=== PATIENT | male | born 1945 | race Caucasian/White ===

== ENCOUNTER 2022-06-17 20:40 | Inpatient (IN) | payer MEDICARE ==
[~2022-06-17 20:40] MED LIST: Iopamidol-370 76% 500 ML 1 ML ONE
[2022-06-17] MEDS ORDERED: Midazolam HCl 2 mg/2 ml Vial ONE (20:54)
[2022-06-17 21:19] LABS: #Eosinphils 0.1 thou/uL (0.0-0.7); #Lymphocytes 1.5 thou/uL (1.20-3.40); #Monocytes 0.5 thou/uL (0.11-0.59); #Neutrophils 5.3 thou/uL (1.40-6.50); %Basophils 0.3 % (0.0-1.0); %Eosinophils 1.5 % (0.0-10.0); %Lymphocytes 19.8 % (21.0-51.0); %Monocytes 6.3 % (0.0-10.0); %Neutrophils 72.1 % (42.0-75.0); Hemoglobin 14.3 g/dL (14.0-18.0); Mean Corpuscular HGB CONC 32.7 g/dL (32.0-36.0); Mean Corpuscular Hemoglobin 30.6 pg (27.0-31.0); Mean Corpuscular Volume 93.5 fL (78.0-98.0); Mean Platelet Volume 9.7 fL (7.4-10.4); Platelet Count 171 thou/uL (130-400); RBC Distribution Width 12.1 % (11.5-14.5); Red Blood Cell (RBC) Count 4.66 mill/uL (4.70-6.10); White Blood Cell (WBC) Count 7.4 thou/uL (4.8-10.8)
[2022-06-17 21:33] LABS: INR-International Normal Ratio 1.1; Prothrombin Time 13.8 sec (12.0-14.7)
[2022-06-17 21:36] LABS: CK (CPK) 44 U/L (30-200); CRP (Inflammatory) Less than 0.50 mg/dL (= or < 0.5)
[2022-06-17] MEDS ORDERED: Tenecteplase 50 MG - STEMI KIT ONE (21:36)
[2022-06-17 21:37] LABS: ALT (SGPT) 8 U/L (8-55); AST (SGOT) 9 U/L (5-34); Albumin 3.4 g/dL (3.4-4.8); Alkaline Phosphatase 68 U/L (40-110); Anion Gap 15 mmol/L (10-20); BUN (Urea Nitrogen) 18 mg/dL (8.4-25.7); Bilirubin, Total 0.8 mg/dL (0.2-1.2); Calc. Creatinine Clearance 0 mL/min (70-130); Calcium 8.8 mg/dL (7.8-10.44); Carbon Dioxide 22 mmol/L (23-31); Chloride 106 mmol/L (98-107); Estimated GFR 44; Glucose 153 mg/dL (83-110); Potassium 3.5 mmol/L (3.5-5.1); Protein, Total 5.4 g/dL (5.8-8.1); Sodium 139 mmol/L (136-145)
[2022-06-17 21:42] LABS: Acetaminophen Less than 10.0 mcg/mL (10.0-30.0); Alcohol Less than 10 mg/dL (Less than 10); Salicylate Less than 8.0 mg/dL (15.0-30.0)
[2022-06-17 21:58] LABS: CKMB 0.7 ng/mL (0-6.6)
[2022-06-17 22:31] LABS: Bacteria/HPF None Seen HPF (None Seen); Bilirubin Negative (Negative); Blood, Urine Negative (Negative); Clarity Clear (Clear); Glucose, Urine (Dipstick) 150 mg/dL (Negative); Ketone, Urine Negative (Negative); Leukocyte Negative Leu/uL (Negative); Nitrite Negative (Negative); Protein, Urine (Dipstick) 30 mg/dL (Neg-Trace); RBC/HPF 0-3 HPF (0-3); Specific Gravity, Urine 1.035 (1.002-1.036); Squamous Epithelial None Seen HPF (0-3); Urobilinogen Normal mg/dL (Less than 2); WBC/HPF 0-3 HPF (0-3)
[2022-06-17] MEDS ORDERED: hydrALAZINE 20 MG/ML VIAL ONE (22:34)
[2022-06-17 22:38] LABS: Amphetamine Not Detected (NotDetected); Barbiturates Screen Not Detected (NotDetected); Benzodiazepine Screen Detected (NotDetected); Cocaine Metabolite Screen Not Detected (NotDetected); Methadone Not Detected (NotDetected); Methamphetamine Not Detected (NotDetected); Opiate Screen Not Detected (NotDetected); Oxycodone Screen Not Detected (NotDetected); Phencyclidine (PCP) Not Detected (NotDetected); THC/Cannabinoid Screen Not Detected (NotDetected); Tricyclic Screen Not Detected (NotDetected)
[2022-06-17] MEDS ORDERED: Acetaminophen 325 MG TAB PO PRN (22:55)
[2022-06-17] MEDS ORDERED: Dextrose 50% Abboject 50 ML SYRINGE SLOW IVP PRN (22:55)
[2022-06-17] MEDS ORDERED: Dextrose 5% in Water 1,000 ML IV PRN (22:55)
[2022-06-17] MEDS ORDERED: Ondansetron ODT 4 MG TAB PO PRN (22:55)
[2022-06-17] MEDS ORDERED: HumaLOG 300 UNITS/3 ML VIAL SC PRN (22:55)
[2022-06-17] MEDS ORDERED: Ondansetron PF 4 MG/2 ML Vial IVP PRN (22:55)
[2022-06-17 22:59] LABS: SARS-CoV-2 NAA Rapid Test Not Detected (NotDetected)
[2022-06-17] MEDS ORDERED: Communication Order-Pharmacy FS SCH (23:01)
[2022-06-17] MEDS: Labetalol HCl 100 MG/20 ML VIAL SLOW IVP PRN (23:37)
[2022-06-17] MEDS: Acetaminophen 650 MG Suppository PR PRN (23:37)
[2022-06-18] MEDS: niCARdipine 25 MG in Sodium Chloride 0.9% 250 ML 250 ML IVPB PRN ×9 (00:14→22:13)
[2022-06-18] MEDS: Labetalol HCl 100 MG/20 ML VIAL SLOW IVP PRN ×2 (01:00→02:30)
[2022-06-18] MEDS: HumaLOG 300 UNITS/3 ML VIAL SC PRN (01:02)
[2022-06-18] MEDS ORDERED: Acetaminophen 650 MG Suppository PR SCH (01:15)
[2022-06-18] MEDS ORDERED: Piperacillin/Tazobactam 3.375 GM in Sodium Chloride 0.9% 100 ML IVPB SCH ×2 (01:15→01:30)
[2022-06-18] MEDS ORDERED: VANCOMYCIN 1.25 GM/250 ML BAG 1.25 GM in Premix Bag 1 BAG IVPB SCH (01:15)
[2022-06-18] MEDS ORDERED: Vancomycin 1.5 GRAM/300 ML BAG 1.5 GM in Premix Bag 1 BAG IVPB SCH (02:00)
[2022-06-18] MEDS ORDERED: Vancomycin 1 GM in Premix Bag 1 BAG IVPB SCH (02:00)
[2022-06-18] MEDS ORDERED: Pantoprazole 40 MG VIAL IVP SCH (02:45)
[2022-06-18] MEDS ORDERED: Ketorolac Tromethamine 30 MG/ML VIAL IVP SCH (02:45)
[2022-06-18] MEDS: Acetaminophen 650 MG Suppository PR PRN ×3 (02:56→22:09)
[2022-06-18] MEDS: Piperacillin/Tazobactam 3.375 GM in Sodium Chloride 0.9% 100 ML IVPB SCH ×3 (05:58→22:08)
[2022-06-18] MEDS: Pantoprazole 40 MG VIAL IVP SCH (08:41)
[2022-06-18] MEDS ORDERED: Aspirin 300 MG Suppository PR SCH (09:00)
[2022-06-18] MEDS: Mupirocin 2% Ointment 22 GM Tube TOP SCH ×2 (14:02→20:37)
[2022-06-19] MEDS: niCARdipine 25 MG in Sodium Chloride 0.9% 250 ML 250 ML IVPB PRN ×2 (00:58→03:01)
[2022-06-19] MEDS: Vancomycin 1 GM in Premix Bag 1 BAG IVPB SCH (01:39)
[2022-06-19] MEDS ORDERED: niCARdipine 25 MG/10 ML VIAL ONE (03:00)
[2022-06-19 05:41] LABS: Anion Gap 16 mmol/L (10-20); BUN (Urea Nitrogen) 29 mg/dL (8.4-25.7); Calc. Creatinine Clearance 33 mL/min (70-130); Calcium 8.8 mg/dL (7.8-10.44); Carbon Dioxide 19 mmol/L (23-31); Chloride 109 mmol/L (98-107); Estimated GFR 34; Glucose 198 mg/dL (83-110); Potassium 3.8 mmol/L (3.5-5.1); Sodium 140 mmol/L (136-145)
[2022-06-19 06:58] LABS: #Lymphocytes 1.4 thou/uL (1.20-3.40); #Monocytes 1.1 thou/uL (0.11-0.59); #Neutrophils 13.4 thou/uL (1.40-6.50); %Basophils 0.2 % (0.0-1.0); %Lymphocytes 8.5 % (21.0-51.0); %Monocytes 6.9 % (0.0-10.0); %Neutrophils 84.3 % (42.0-75.0); Hemoglobin 13.8 g/dL (14.0-18.0); Mean Corpuscular HGB CONC 33.9 g/dL (32.0-36.0); Mean Corpuscular Hemoglobin 31.1 pg (27.0-31.0); Mean Corpuscular Volume 91.7 fL (78.0-98.0); Mean Platelet Volume 10.2 fL (7.4-10.4); Platelet Count 197 thou/uL (130-400); RBC Distribution Width 12.4 % (11.5-14.5); Red Blood Cell (RBC) Count 4.45 mill/uL (4.70-6.10); White Blood Cell (WBC) Count 15.9 thou/uL (4.8-10.8)
[2022-06-19] MEDS: Piperacillin/Tazobactam 3.375 GM in Sodium Chloride 0.9% 100 ML IVPB SCH ×3 (07:24→21:43)
[2022-06-19 08:18] LABS: Magnesium 1.7 mg/dL (1.6-2.6)
[2022-06-19] MEDS: Pantoprazole 40 MG VIAL IVP SCH (08:52)
[2022-06-19] MEDS: Mupirocin 2% Ointment 22 GM Tube TOP SCH ×3 (08:52→21:45)
[2022-06-19] MEDS ORDERED: Lorazepam (BATCHED) 2 MG/ML SYR SLOW IVP PRN (13:10)
[2022-06-19] MEDS: Sodium Chloride 0.9% 1,000 ML IV SCH (14:05)
[2022-06-20 01:19] LABS: Vancomycin, Trough 11.4 ug/mL
[2022-06-20] MEDS ORDERED: OLANZapine 10 MG VIAL IM SCH ×2 (02:30→21:15)
[2022-06-20] MEDS ORDERED: Sterile Water 10 ML VIAL FS PRN ×2 (02:30→21:15)
[2022-06-20] MEDS: Vancomycin 1 GM in Premix Bag 1 BAG IVPB SCH (02:44)
[2022-06-20 04:56] LABS: #Eosinphils 0.1 thou/uL (0.0-0.7); #Neutrophils 10.9 thou/uL (1.40-6.50); %Basophils 0.3 % (0.0-1.0); %Eosinophils 0.6 % (0.0-10.0); %Lymphocytes 14.1 % (21.0-51.0); %Monocytes 7.1 % (0.0-10.0); Hemoglobin 14.8 g/dL (14.0-18.0); Hemoglobin A1c 6.6 % (4.0-6.0); Mean Corpuscular HGB CONC 32.1 g/dL (32.0-36.0); Mean Corpuscular Hemoglobin 30.3 pg (27.0-31.0); Mean Corpuscular Volume 94.4 fL (78.0-98.0); Mean Platelet Volume 9.3 fL (7.4-10.4); Platelet Count 196 thou/uL (130-400); RBC Distribution Width 12.5 % (11.5-14.5); Red Blood Cell (RBC) Count 4.87 mill/uL (4.70-6.10); White Blood Cell (WBC) Count 13.9 thou/uL (4.8-10.8)
[2022-06-20 05:16] LABS: Anion Gap 14 mmol/L (10-20); BUN (Urea Nitrogen) 31 mg/dL (8.4-25.7); Calc. Creatinine Clearance 39 mL/min (70-130); Calcium 8.8 mg/dL (7.8-10.44); Carbon Dioxide 20 mmol/L (23-31); Chloride 114 mmol/L (98-107); Estimated GFR 42; Glucose 105 mg/dL (83-110); Potassium 3.4 mmol/L (3.5-5.1); Sodium 145 mmol/L (136-145)
[2022-06-20] MEDS: Piperacillin/Tazobactam 3.375 GM in Sodium Chloride 0.9% 100 ML IVPB SCH ×3 (05:53→22:13)
[2022-06-20] MEDS ORDERED: Potassium Chloride 20 MEQ in Premix Bag 1 BAG IVPB SCH (07:45)
[2022-06-20] MEDS: Sodium Chloride 0.9% 1,000 ML IV SCH (10:10)
[2022-06-20] MEDS: Mupirocin 2% Ointment 22 GM Tube TOP SCH ×3 (10:13→22:13)
[2022-06-20] MEDS: Pantoprazole 40 MG VIAL IVP SCH (10:13)
[2022-06-20] MEDS ORDERED: Lorazepam 1 MG TAB PO SCH (15:30)
[2022-06-21 01:22] LABS: Vancomycin, Trough 10.9 ug/mL
[2022-06-21] MEDS: hydrALAZINE 20 MG/ML VIAL SLOW IVP PRN ×2 (01:48→05:37)
[2022-06-21] MEDS ORDERED: Vancomycin 1.5 GRAM/300 ML BAG 1.5 GM in Premix Bag 1 BAG IVPB SCH (02:00)
[2022-06-21] MEDS ORDERED: Lorazepam 0.5 MG TAB PO SCH (03:15)
[2022-06-21 05:04] LABS: #Eosinphils 0.2 thou/uL (0.0-0.7); #Lymphocytes 1.6 thou/uL (1.20-3.40); #Monocytes 0.9 thou/uL (0.11-0.59); #Neutrophils 8.5 thou/uL (1.40-6.50); %Basophils 0.3 % (0.0-1.0); %Eosinophils 1.9 % (0.0-10.0); %Lymphocytes 13.8 % (21.0-51.0); %Monocytes 7.8 % (0.0-10.0); %Neutrophils 76.2 % (42.0-75.0); Mean Corpuscular HGB CONC 31.7 g/dL (32.0-36.0); Mean Corpuscular Hemoglobin 29.5 pg (27.0-31.0); Mean Corpuscular Volume 93.3 fL (78.0-98.0); Mean Platelet Volume 9.1 fL (7.4-10.4); Platelet Count 194 thou/uL (130-400); RBC Distribution Width 12.3 % (11.5-14.5); Red Blood Cell (RBC) Count 5.09 mill/uL (4.70-6.10); White Blood Cell (WBC) Count 11.2 thou/uL (4.8-10.8)
[2022-06-21 05:25] LABS: Anion Gap 16 mmol/L (10-20); BUN (Urea Nitrogen) 22 mg/dL (8.4-25.7); Calc. Creatinine Clearance 46 mL/min (70-130); Calcium 9.2 mg/dL (7.8-10.44); Carbon Dioxide 21 mmol/L (23-31); Chloride 110 mmol/L (98-107); Estimated GFR 51; Glucose 65 mg/dL (83-110); Potassium 3.2 mmol/L (3.5-5.1); Sodium 144 mmol/L (136-145)
[2022-06-21] MEDS: Piperacillin/Tazobactam 3.375 GM in Sodium Chloride 0.9% 100 ML IVPB SCH ×2 (05:37→07:10)
[2022-06-21] MEDS ORDERED: Potassium Chloride 40 MEQ in Premix Bag 1 BAG IVPB SCH (07:45)
[2022-06-21] MEDS ORDERED: Potassium Chloride 20 MEQ in Premix Bag 1 BAG IVPB SCH (08:00)
[2022-06-21] MEDS: Amlodipine 10 MG TAB PO SCH (08:37)
[2022-06-21] MEDS: Pantoprazole 40 MG VIAL IVP SCH (08:37)
[2022-06-21] MEDS: Lisinopril 20 MG TAB PO SCH (08:37)
[2022-06-21] MEDS: Mupirocin 2% Ointment 22 GM Tube TOP SCH ×3 (08:38→20:45)
[2022-06-21] MEDS: Sodium Chloride 0.9% 1,000 ML IV SCH (08:40)
[2022-06-21] MEDS ORDERED: Baclofen 10 MG TAB PO SCH (09:00)
[2022-06-21] MEDS ORDERED: Potassium Chloride 20 MEQ TAB PO SCH (09:15)
[2022-06-21] MEDS: Temazepam 15 MG CAP PO SCH (20:45)
[2022-06-21] MEDS: Atorvastatin Calcium 40 MG TAB PO SCH (20:45)
[2022-06-22 05:24] LABS: Anion Gap 13 mmol/L (10-20); BUN (Urea Nitrogen) 23 mg/dL (8.4-25.7); Calc. Creatinine Clearance 51 mL/min (70-130); Calcium 8.9 mg/dL (7.8-10.44); Carbon Dioxide 23 mmol/L (23-31); Chloride 111 mmol/L (98-107); Estimated GFR 58; Glucose 111 mg/dL (83-110); Potassium 3.5 mmol/L (3.5-5.1); Sodium 143 mmol/L (136-145)
[2022-06-22] MEDS: Mupirocin 2% Ointment 22 GM Tube TOP SCH ×3 (08:33→22:06)
[2022-06-22] MEDS: Amlodipine 10 MG TAB PO SCH (08:33)
[2022-06-22] MEDS: Lisinopril 20 MG TAB PO SCH (08:33)
[2022-06-22] MEDS: Aspirin 81 mg Enteric Coated Tablet PO SCH (08:33)
[2022-06-22] MEDS: HumaLOG 300 UNITS/3 ML VIAL SC PRN ×2 (11:44→16:38)
[2022-06-22] MEDS: Atorvastatin Calcium 40 MG TAB PO SCH (22:05)
[2022-06-22] MEDS: Temazepam 15 MG CAP PO SCH (22:06)
[2022-06-23 05:38] LABS: #Eosinphils 0.4 thou/uL (0.0-0.7); #Lymphocytes 1.9 thou/uL (1.20-3.40); #Monocytes 0.9 thou/uL (0.11-0.59); #Neutrophils 5.3 thou/uL (1.40-6.50); %Basophils 0.5 % (0.0-1.0); %Eosinophils 4.7 % (0.0-10.0); %Lymphocytes 22.2 % (21.0-51.0); %Monocytes 10.9 % (0.0-10.0); %Neutrophils 61.7 % (42.0-75.0); Hemoglobin 14.5 g/dL (14.0-18.0); Mean Corpuscular HGB CONC 33.6 g/dL (32.0-36.0); Mean Corpuscular Hemoglobin 31.4 pg (27.0-31.0); Mean Corpuscular Volume 93.3 fL (78.0-98.0); Mean Platelet Volume 9.6 fL (7.4-10.4); Platelet Count 176 thou/uL (130-400); RBC Distribution Width 12.2 % (11.5-14.5); Red Blood Cell (RBC) Count 4.62 mill/uL (4.70-6.10); White Blood Cell (WBC) Count 8.6 thou/uL (4.8-10.8)
[2022-06-23 05:53] LABS: Anion Gap 11 mmol/L (10-20); BUN (Urea Nitrogen) 32 mg/dL (8.4-25.7); Calc. Creatinine Clearance 41 mL/min (70-130); Calcium 8.8 mg/dL (7.8-10.44); Carbon Dioxide 25 mmol/L (23-31); Chloride 111 mmol/L (98-107); Estimated GFR 47; Glucose 129 mg/dL (83-110); Sodium 144 mmol/L (136-145)
[2022-06-23 06:01] LABS: Potassium 2.9 mmol/L (3.5-5.1)
[2022-06-23] MEDS ORDERED: Potassium Chloride 20 MEQ TAB PO SCH (06:15)
[2022-06-23] MEDS ORDERED: Potassium Bicarbonate/Cit Ac 20 MEQ TAB PO SCH ×3 (06:15→22:30)
[2022-06-23 06:26] LABS: Magnesium 2.1 mg/dL (1.6-2.6)
[2022-06-23] MEDS ORDERED: Electrolyte Replacement Protocol 1 EACH FS SCH (06:45)
[2022-06-23] MEDS: hydrALAZINE 20 MG/ML VIAL SLOW IVP PRN (07:02)
[2022-06-23] MEDS: Amlodipine 10 MG TAB PO SCH (09:09)
[2022-06-23] MEDS: metFORMIN 500 MG TAB PO SCH (09:10)
[2022-06-23] MEDS: Aspirin 81 mg Enteric Coated Tablet PO SCH (09:11)
[2022-06-23] MEDS: Lisinopril 20 MG TAB PO SCH (09:12)
[2022-06-23] MEDS: Mupirocin 2% Ointment 22 GM Tube TOP SCH ×3 (09:14→20:45)
[2022-06-23] MEDS ORDERED: Polyethylene Glycol 3350 17 GM Packet PO PRN (11:34)
[2022-06-23] MEDS ORDERED: Metoprolol Tartrate 25 MG TAB PO SCH (12:15)
[2022-06-23] MEDS ORDERED: Senokot S 8.6-50 MG TAB PO SCH (12:15)
[2022-06-23 18:49] LABS: Potassium 3.5 mmol/L (3.5-5.1)
[2022-06-23] MEDS: Temazepam 15 MG CAP PO SCH (20:36)
[2022-06-23] MEDS: Atorvastatin Calcium 40 MG TAB PO SCH (20:36)
[2022-06-23] MEDS: Metoprolol Tartrate 25 MG TAB PO SCH (20:36)
[2022-06-23] MEDS: Senokot S 8.6-50 MG TAB PO SCH (21:11)
[2022-06-24 08:20] LABS: #Basophils 0.1 thou/uL (0.0-0.2); #Eosinphils 0.3 thou/uL (0.0-0.7); #Lymphocytes 1.5 thou/uL (1.20-3.40); #Monocytes 0.9 thou/uL (0.11-0.59); #Neutrophils 8.2 thou/uL (1.40-6.50); %Basophils 0.6 % (0.0-1.0); %Eosinophils 3.1 % (0.0-10.0); %Lymphocytes 13.5 % (21.0-51.0); %Monocytes 7.7 % (0.0-10.0); Hemoglobin 13.5 g/dL (14.0-18.0); Mean Corpuscular HGB CONC 32.1 g/dL (32.0-36.0); Mean Corpuscular Volume 93.5 fL (78.0-98.0); Mean Platelet Volume 10.2 fL (7.4-10.4); Platelet Count 194 thou/uL (130-400); RBC Distribution Width 12.1 % (11.5-14.5); Red Blood Cell (RBC) Count 4.51 mill/uL (4.70-6.10); White Blood Cell (WBC) Count 10.9 thou/uL (4.8-10.8)
[2022-06-24 08:36] LABS: Anion Gap 12 mmol/L (10-20); BUN (Urea Nitrogen) 33 mg/dL (8.4-25.7); Calc. Creatinine Clearance 39 mL/min (70-130); Carbon Dioxide 28 mmol/L (23-31); Chloride 107 mmol/L (98-107); Estimated GFR 42; Glucose 126 mg/dL (83-110); Potassium 3.7 mmol/L (3.5-5.1); Sodium 143 mmol/L (136-145)
[2022-06-24] MEDS: Lisinopril 20 MG TAB PO SCH (09:15)
[2022-06-24] MEDS: Aspirin 81 mg Enteric Coated Tablet PO SCH (09:16)
[2022-06-24] MEDS: Metoprolol Tartrate 25 MG TAB PO SCH ×2 (09:16→20:34)
[2022-06-24] MEDS: metFORMIN 500 MG TAB PO SCH (09:16)
[2022-06-24] MEDS: Amlodipine 10 MG TAB PO SCH (09:17)
[2022-06-24] MEDS: Senokot S 8.6-50 MG TAB PO SCH ×2 (09:18→20:48)
[2022-06-24] MEDS: Mupirocin 2% Ointment 22 GM Tube TOP SCH ×3 (09:18→20:47)
[2022-06-24] MEDS: Temazepam 15 MG CAP PO SCH (20:34)
[2022-06-24] MEDS: Atorvastatin Calcium 40 MG TAB PO SCH (20:34)
[2022-06-25 05:32] LABS: Anion Gap 12 mmol/L (10-20); BUN (Urea Nitrogen) 29 mg/dL (8.4-25.7); Calc. Creatinine Clearance 45 mL/min (70-130); Calcium 8.5 mg/dL (7.8-10.44); Carbon Dioxide 24 mmol/L (23-31); Chloride 108 mmol/L (98-107); Estimated GFR 49; Glucose 118 mg/dL (83-110); Potassium 3.2 mmol/L (3.5-5.1); Sodium 141 mmol/L (136-145)
[2022-06-25] MEDS ORDERED: Potassium Chloride 20 MEQ TAB PO SCH (08:00)
[2022-06-25] MEDS: Lisinopril 20 MG TAB PO SCH (10:05)
[2022-06-25] MEDS: Metoprolol Tartrate 25 MG TAB PO SCH ×2 (10:06→22:27)
[2022-06-25] MEDS: Amlodipine 10 MG TAB PO SCH (10:06)
[2022-06-25] MEDS: Aspirin 81 mg Enteric Coated Tablet PO SCH (10:06)
[2022-06-25] MEDS: Mupirocin 2% Ointment 22 GM Tube TOP SCH ×3 (10:07→22:13)
[2022-06-25] MEDS: Senokot S 8.6-50 MG TAB PO SCH (10:07)
[2022-06-25] MEDS: metFORMIN 500 MG TAB PO SCH (10:08)
[2022-06-25] MEDS ORDERED: Senokot S 8.6-50 MG TAB PO PRN (15:45)
[2022-06-25] MEDS: Temazepam 15 MG CAP PO SCH (22:13)
[2022-06-25] MEDS: Atorvastatin Calcium 40 MG TAB PO SCH (22:13)
[2022-06-26 05:49] LABS: Anion Gap 12 mmol/L (10-20); BUN (Urea Nitrogen) 22 mg/dL (8.4-25.7); Calc. Creatinine Clearance 48 mL/min (70-130); Calcium 8.8 mg/dL (7.8-10.44); Carbon Dioxide 24 mmol/L (23-31); Chloride 110 mmol/L (98-107); Estimated GFR 53; Glucose 108 mg/dL (83-110); Potassium 3.6 mmol/L (3.5-5.1); Sodium 142 mmol/L (136-145)
[2022-06-26] MEDS: metFORMIN 500 MG TAB PO SCH (09:52)
[2022-06-26] MEDS: Lisinopril 20 MG TAB PO SCH (09:52)
[2022-06-26] MEDS: Saccharomyces boulardii 250 MG CAP PO SCH (09:54)
[2022-06-26] MEDS: Aspirin 81 mg Enteric Coated Tablet PO SCH (09:54)
[2022-06-26] MEDS: Amlodipine 10 MG TAB PO SCH (09:54)
[2022-06-26] MEDS: Mupirocin 2% Ointment 22 GM Tube TOP SCH ×3 (09:55→21:01)
[2022-06-26] MEDS: Metoprolol Tartrate 25 MG TAB PO SCH ×2 (09:55→21:11)
[2022-06-26] MEDS: Atorvastatin Calcium 40 MG TAB PO SCH (21:00)
[2022-06-26] MEDS: Temazepam 15 MG CAP PO SCH (21:00)
[2022-06-27] MEDS: Saccharomyces boulardii 250 MG CAP PO SCH (09:22)
[2022-06-27] MEDS: Lisinopril 20 MG TAB PO SCH (09:22)
[2022-06-27] MEDS: Metoprolol Tartrate 25 MG TAB PO SCH ×2 (09:22→21:53)
[2022-06-27] MEDS: Amlodipine 10 MG TAB PO SCH (09:23)
[2022-06-27] MEDS: metFORMIN 500 MG TAB PO SCH (09:23)
[2022-06-27] MEDS: Aspirin 81 mg Enteric Coated Tablet PO SCH (09:23)
[2022-06-27] MEDS: Mupirocin 2% Ointment 22 GM Tube TOP SCH ×3 (09:23→21:25)
[2022-06-27] MEDS: Atorvastatin Calcium 40 MG TAB PO SCH (21:26)
[2022-06-27] MEDS: Temazepam 15 MG CAP PO SCH (21:26)
[2022-06-28] MEDS: Saccharomyces boulardii 250 MG CAP PO SCH (08:35)
[2022-06-28] MEDS: metFORMIN 500 MG TAB PO SCH (08:36)
[2022-06-28] MEDS: Metoprolol Tartrate 25 MG TAB PO SCH ×2 (08:37→21:06)
[2022-06-28] MEDS: Aspirin 81 mg Enteric Coated Tablet PO SCH (08:37)
[2022-06-28] MEDS: Lisinopril 20 MG TAB PO SCH (08:37)
[2022-06-28] MEDS: Amlodipine 10 MG TAB PO SCH (08:37)
[2022-06-28] MEDS: Mupirocin 2% Ointment 22 GM Tube TOP SCH ×3 (08:42→21:07)
[2022-06-28 14:38] VITALS: BMI 22.3
[2022-06-28] MEDS: Temazepam 15 MG CAP PO SCH (21:07)
[2022-06-28] MEDS: Atorvastatin Calcium 40 MG TAB PO SCH (21:07)
[2022-06-29] MEDS: Metoprolol Tartrate 25 MG TAB PO SCH (09:06)
[2022-06-29] MEDS: Lisinopril 20 MG TAB PO SCH (09:14)
[2022-06-29] MEDS: metFORMIN 500 MG TAB PO SCH (09:14)
[2022-06-29] MEDS: Amlodipine 10 MG TAB PO SCH (09:15)
[2022-06-29] MEDS: Saccharomyces boulardii 250 MG CAP PO SCH (09:15)
[2022-06-29] MEDS: Aspirin 81 mg Enteric Coated Tablet PO SCH (09:15)
[2022-06-29 11:27] VITALS: BP 146/85; TEMP 98
== END 2022-06-29 15:54 | disposition home health service (06) | DRG 62 ==
LOC: ERS 20:40 → CCU 22:28 → NEURO 06-19 15:00
PROVIDERS: ADMIT Hospitalist; ATTEND Hospitalist
DX: I63.81 Other cerebral infarction due to occlusion or stenosis of small artery (principal); G81.94 Hemiplegia, unspecified affecting left nondominant side; R29.732 NIHSS score 32; R29.810 Facial weakness; E78.5 Hyperlipidemia, unspecified; I12.9 Hypertensive chronic kidney disease with stage 1 through stage 4 chronic kidney disease, or unspecified chronic kidney disease; E11.22 Type 2 diabetes mellitus with diabetic chronic kidney disease; N18.30 Chronic kidney disease, stage 3 unspecified; R50.9 Fever, unspecified; K59.00 Constipation, unspecified; E87.6 Hypokalemia; Z79.899 Other long term (current) drug therapy; Z79.84 Long term (current) use of oral hypoglycemic drugs; Z88.8 Allergy status to other drugs, medicaments and biological substances
CPT/HCPCS: 36415; 36416; 37195; 70450; 70496; 70498; 70551; 71045; 74230; 80048; 80053; 80061; 80202; 80306; 80307; 81003; 81015; 82550; 82553; 83036; 83605; 83735; 84443; 84484; 85025; 85610; 85730; 86140; 87040; 87086; 87324; 87449; 93005; 93306; 94760; 96374; 96375; C9113; J0360; J1610; J1815; J1885; J2250; J2358; J2543; J3101; J3370; J3480; J3490; J7050; Q9967; U0002; U0003; U0005

== ENCOUNTER 2022-08-07 12:19 | Inpatient (IN) | payer MEDICARE ==
[2022-08-07] MEDS ORDERED: Ondansetron PF 4 MG/2 ML Vial IVP PRN (13:29)
[2022-08-07] MEDS ORDERED: Ondansetron ODT 4 MG TAB PO PRN (13:29)
[2022-08-07] MEDS ORDERED: Calcium Carbonate 500 MG ChewTAB PO PRN (13:29)
[2022-08-07] MEDS ORDERED: Acetaminophen 325 MG TAB PO PRN (13:29)
[2022-08-07] MEDS ORDERED: hydrALAZINE 20 MG/ML VIAL SLOW IVP PRN (13:34)
[2022-08-07] MEDS ORDERED: Electrolyte Replacement Protocol 1 EACH FS PRN (13:45)
[2022-08-07] MEDS ORDERED: Amlodipine 10 MG TAB PO SCH (13:45)
[2022-08-07 18:39] VITALS: BMI 26.1
[2022-08-07] MEDS: Atorvastatin Calcium 40 MG TAB PO SCH (20:27)
[2022-08-07] MEDS: Heparin 5,000 UNITS/ML VIAL SC SCH (20:38)
[2022-08-07] MEDS ORDERED: traZODone HCl 50 MG TAB PO PRN (22:07)
[2022-08-08 05:26] LABS: #Eosinphils 0.3 thou/uL (0.0-0.7); #Lymphocytes 1.9 thou/uL (1.20-3.40); #Monocytes 0.6 thou/uL (0.11-0.59); #Neutrophils 4.1 thou/uL (1.40-6.50); %Basophils 0.3 % (0.0-1.0); %Eosinophils 3.8 % (0.0-10.0); %Lymphocytes 27.9 % (21.0-51.0); %Monocytes 8.4 % (0.0-10.0); %Neutrophils 59.7 % (42.0-75.0); Mean Corpuscular Hemoglobin 31.8 pg (27.0-31.0); Mean Corpuscular Volume 93.5 fL (78.0-98.0); Mean Platelet Volume 10.1 fL (7.4-10.4); Platelet Count 155 thou/uL (130-400); RBC Distribution Width 12.4 % (11.5-14.5); Red Blood Cell (RBC) Count 4.42 mill/uL (4.70-6.10); White Blood Cell (WBC) Count 6.9 thou/uL (4.8-10.8)
[2022-08-08 05:41] LABS: Anion Gap 14 mmol/L (10-20); BUN (Urea Nitrogen) 19 mg/dL (8.4-25.7); Calc. Creatinine Clearance 49 mL/min (70-130); Carbon Dioxide 22 mmol/L (23-31); Cardiac Risk 2.6 (Less than 4.5); Chloride 109 mmol/L (98-107); Cholesterol 140 mg/dl (< 200 Desired); Estimated GFR 50; Glucose 133 mg/dL (83-110); HDL Cholesterol 54 mg/dL (>60 Neg Risk); LDL Cholesterol, Calculated 69 mg/dL; Magnesium 1.9 mg/dL (1.6-2.6); Potassium 3.6 mmol/L (3.5-5.1); Sodium 141 mmol/L (136-145); Triglycerides 85 mg/dL (Less than 150)
[2022-08-08] MEDS ORDERED: Non-Formulary Item 1 EACH (Melatonin [Melatonin] 5 MG Tablet) PO PRN (07:27)
[2022-08-08] MEDS ORDERED: Melatonin 3 MG TAB PO PRN (07:32)
[2022-08-08] MEDS ORDERED: Magnesium 2 GM/50 ML(in water) 2 GM in Premix Bag 1 BAG IVPB SCH (08:00)
[2022-08-08] MEDS: Aspirin 81 mg Enteric Coated Tablet PO SCH (08:31)
[2022-08-08] MEDS: Clopidogrel Bisulfate 75 MG TAB PO SCH (08:31)
[2022-08-08] MEDS: Cyanocobalamin (Vitamin B-12) 1,000 MCG TAB PO SCH (08:32)
[2022-08-08] MEDS: Heparin 5,000 UNITS/ML VIAL SC SCH ×2 (08:32→19:55)
[2022-08-08] MEDS: Folic Acid 1 MG TAB PO SCH (08:32)
[2022-08-08] MEDS: Amlodipine 10 MG TAB PO SCH (08:32)
[2022-08-08] MEDS: Multivit, Therapeutic 1 TAB PO SCH (08:32)
[2022-08-08] MEDS: metFORMIN 500 MG TAB PO SCH (08:32)
[2022-08-08] MEDS ORDERED: Enoxaparin Sodium 40 MG/0.4 ML SYRINGE SC SCH (09:00)
[2022-08-08] MEDS: Atorvastatin Calcium 40 MG TAB PO SCH (19:55)
[2022-08-09] MEDS ORDERED: EPINEPHrine 1 MG/ML AMP ONE (06:30)
[2022-08-09] MEDS ORDERED: Lidocaine 1% (PF) 30 ML VIAL ONE (06:30)
[2022-08-09] MEDS: Amlodipine 10 MG TAB PO SCH (09:03)
[2022-08-09] MEDS: Multivit, Therapeutic 1 TAB PO SCH (09:04)
[2022-08-09] MEDS: Aspirin 81 mg Enteric Coated Tablet PO SCH (09:05)
[2022-08-09] MEDS: Clopidogrel Bisulfate 75 MG TAB PO SCH (09:05)
[2022-08-09] MEDS: metFORMIN 500 MG TAB PO SCH (09:05)
[2022-08-09] MEDS: Cyanocobalamin (Vitamin B-12) 1,000 MCG TAB PO SCH (09:06)
[2022-08-09] MEDS: Folic Acid 1 MG TAB PO SCH (09:06)
[2022-08-09 11:42] VITALS: BP 134/86; TEMP 98
== END 2022-08-09 13:40 | disposition home health service (06) | DRG 41 ==
LOC: ERS 12:19 → NEURO 13:08 → OBSVTOIN 17:28
PROVIDERS: ADMIT Internal Medicine; ATTEND Internal Medicine
PROC: 0JH632Z Insertion of Monitoring Device into Chest Subcutaneous Tissue and Fascia, Percutaneous Approach (ICD-10-PCS; principal; 2022-08-09)
DX: I63.81 Other cerebral infarction due to occlusion or stenosis of small artery (principal); G81.94 Hemiplegia, unspecified affecting left nondominant side; R29.702 NIHSS score 2; Z20.822 Contact with and (suspected) exposure to COVID-19; E78.2 Mixed hyperlipidemia; F41.9 Anxiety disorder, unspecified; N18.30 Chronic kidney disease, stage 3 unspecified; I12.9 Hypertensive chronic kidney disease with stage 1 through stage 4 chronic kidney disease, or unspecified chronic kidney disease; E11.22 Type 2 diabetes mellitus with diabetic chronic kidney disease; R00.1 Bradycardia, unspecified; G83.14 Monoplegia of lower limb affecting left nondominant side; I08.1 Rheumatic disorders of both mitral and tricuspid valves; E53.8 Deficiency of other specified B group vitamins; R13.10 Dysphagia, unspecified; F32.A Depression, unspecified; Z87.891 Personal history of nicotine dependence; R27.8 Other lack of coordination; Z79.84 Long term (current) use of oral hypoglycemic drugs; Z86.73 Personal history of transient ischemic attack (TIA), and cerebral infarction without residual deficits; Z88.8 Allergy status to other drugs, medicaments and biological substances; Z79.899 Other long term (current) drug therapy; Z79.02 Long term (current) use of antithrombotics/antiplatelets; Z98.890 Other specified postprocedural states; Z85.46 Personal history of malignant neoplasm of prostate; Z85.038 Personal history of other malignant neoplasm of large intestine; Z98.42 Cataract extraction status, left eye; Z98.41 Cataract extraction status, right eye
CPT/HCPCS: 33285; 36416; 70551; 80048; 80061; 83735; 85025; 93005; 93010; C1764; J0171; J1644; J2001; J3475; U0003; U0005

== ENCOUNTER 2023-01-29 08:18 | Outpatient (CLI) | payer MEDICARE | END 2023-01-29 08:19 | disposition home or self-care (01) | LOC: MRI 08:18 | PROVIDERS: ATTEND Nurse Practitioner Family | DX: M48.062 Spinal stenosis, lumbar region with neurogenic claudication (principal) | CPT/HCPCS: 72148 ==

== ENCOUNTER 2023-07-09 13:34 | Inpatient (IN) | payer MEDICARE ==
[~2023-07-09 13:34] MED LIST changes: -Iopamidol-370 76% 500 ML 1 ML ONE; +Iopamidol-370 76% 500 ML MDV (1 ML CHARGE) ONE
[2023-07-09] MEDS ORDERED: Ondansetron PF 4 MG/2 ML Vial ONE (14:07)
[2023-07-09] MEDS ORDERED: Labetalol HCl 100 MG/20 ML VIAL ONE (14:07)
[2023-07-09 14:10] LABS: #Eosinphils 0.1 thou/uL (0.0-0.7); #Monocytes 0.6 thou/uL (0.11-0.59); #Neutrophils 7.4 thou/uL (1.40-6.50); %Basophils 0.4 % (0.0-1.0); %Eosinophils 0.9 % (0.0-10.0); %Lymphocytes 17.3 % (21.0-51.0); %Monocytes 6.2 % (0.0-10.0); %Neutrophils 74.8 % (42.0-75.0); Hemoglobin 12.1 g/dL (14.0-18.0); Mean Corpuscular HGB CONC 33.6 g/dL (32.0-36.0); Mean Corpuscular Hemoglobin 31.1 pg (27.0-31.0); Mean Corpuscular Volume 92.5 fl (78.0-98.0); Mean Platelet Volume 11.4 fL (7.4-10.4); Platelet Count 223 10x3/uL (130-400); RBC Distribution Width 12.5 % (11.5-14.5); Red Blood Cell (RBC) Count 3.89 mill/uL (4.70-6.10); White Blood Cell (WBC) Count 9.9 10x3/uL (4.8-10.8)
[2023-07-09 14:29] LABS: INR-International Normal Ratio 1.1; Prothrombin Time 14.7 sec (12.0-14.7)
[2023-07-09 14:30] LABS: PTT 27.4 sec (22.9-36.1)
[2023-07-09 14:32] LABS: ALT (SGPT) 10 U/L (8-55); AST (SGOT) 11 U/L (5-34); Albumin 3.6 g/dL (3.4-4.8); Alkaline Phosphatase 103 U/L (40-110); Anion Gap 14 mmol/L (10-20); BUN (Urea Nitrogen) 22 mg/dL (8.4-25.7); Bilirubin, Total 0.6 mg/dL (0.2-1.2); Calc. Creatinine Clearance 0 mL/min (70-130); Calcium 8.7 mg/dL (7.8-10.44); Carbon Dioxide 18 mmol/L (23-31); Chloride 109 mmol/L (98-107); Estimated GFR 34; Globulin 2.1 g/dL (2.4-3.5); Glucose 169 mg/dL (83-110); Lipase 232 U/L (8-78); Magnesium 1.8 mg/dL (1.6-2.6); Potassium 3.5 mmol/L (3.5-5.1); Protein, Total 5.7 g/dL (5.8-8.1); Sodium 137 mmol/L (136-145)
[2023-07-09 14:35] LABS: Troponin I Less than 0.010 ng/mL (< 0.028)
[2023-07-09 15:16] LABS: Bacteria/HPF 2+ HPF (None Seen); Bilirubin Negative (Negative); Blood, Urine 1+ (Negative); CAUTI Indications for Culture Alt mental st,lethar; Clarity Turbid (Clear); Glucose, Urine (Dipstick) 200 mg/dL (Negative); Ketone, Urine Negative (Negative); Leukocyte 500 Leu/uL (Negative); Nitrite 1+ (Negative); Protein, Urine (Dipstick) 70 mg/dL (Neg-Trace); RBC/HPF 21-50 HPF (0-3); Specific Gravity, Urine 1.048 (1.002-1.036); Squamous Epithelial 0-3 HPF (0-3); Urobilinogen Normal mg/dL (Less than 2); WBC/HPF Greater than 50 HPF (0-3); pH, Urine 5.5 (5.0-9.0)
[2023-07-09 15:18] LABS: Urine Culture Reflex Yes Yes
[2023-07-09] MEDS ORDERED: Morphine 2 MG/ML VIAL ONE (15:40)
[2023-07-09] MEDS ORDERED: cefTRIAXone (ROCEPHIN) 1 GM VIAL ONE (15:40)
[2023-07-09] MEDS ORDERED: Aspirin Chewable 81 MG TAB ONE (15:40)
[2023-07-09] MEDS ORDERED: Senokot S 8.6-50 MG TAB PO PRN (16:08)
[2023-07-09] MEDS ORDERED: Calcium Carbonate 500 MG ChewTAB PO PRN (16:08)
[2023-07-09] MEDS ORDERED: hydrALAZINE 20 MG/ML VIAL SLOW IVP PRN (16:08)
[2023-07-09] MEDS ORDERED: Acetaminophen 325 MG TAB PO PRN (16:08)
[2023-07-09] MEDS ORDERED: Ondansetron PF 4 MG/2 ML Vial IVP PRN (16:08)
[2023-07-09] MEDS ORDERED: Diazepam 10 MG/2 ML SYRINGE ONE (16:10)
[2023-07-09] MEDS ORDERED: Dextrose 50% Abboject 50 ML SYRINGE SLOW IVP PRN (16:13)
[2023-07-09] MEDS ORDERED: Dextrose 5% in Water 1,000 ML IV PRN (16:13)
[2023-07-09] MEDS ORDERED: HumaLOG 300 UNITS/3 ML VIAL SC PRN ×2 (16:13)
[2023-07-09] MEDS ORDERED: Glucagon 1 MG/ML KIT IM PRN (16:13)
[2023-07-09] MEDS ORDERED: traZODone HCl 50 MG TAB PO PRN (16:13)
[2023-07-09] MEDS ORDERED: Sodium Chloride 0.9% 1,000 ML IV SCH (16:30)
[2023-07-09] MEDS: Atorvastatin Calcium 40 MG TAB PO SCH (21:52)
[2023-07-09] MEDS: Sodium Chloride 0.9% 1,000 ML IV SCH (21:52)
[2023-07-09] MEDS: Potassium Bicarbonate/Cit Ac 20 MEQ TAB PO SCH (21:53)
[2023-07-09] MEDS: Heparin 5,000 UNITS/ML VIAL SC SCH (21:53)
[2023-07-09] MEDS ORDERED: Potassium Chloride 20 MEQ in Premix Bag 1 BAG IVPB SCH (23:59)
[2023-07-10 03:25] VITALS: BMI 24.1
[2023-07-10 04:37] LABS: #Basophils 0.1 thou/uL (0.0-0.2); #Eosinphils 0.1 thou/uL (0.0-0.7); #Monocytes 0.7 thou/uL (0.11-0.59); #Neutrophils 6.3 thou/uL (1.40-6.50); %Basophils 0.7 % (0.0-1.0); %Eosinophils 1.2 % (0.0-10.0); %Lymphocytes 19.2 % (21.0-51.0); %Monocytes 8.2 % (0.0-10.0); %Neutrophils 70.4 % (42.0-75.0); Hematocrit 39.4 % (42.0-52.0); Mean Corpuscular HGB CONC 30.5 g/dL (32.0-36.0); Mean Corpuscular Hemoglobin 30.6 pg (27.0-31.0); Mean Platelet Volume 11.9 fL (7.4-10.4); RBC Distribution Width 12.6 % (11.5-14.5); Red Blood Cell (RBC) Count 3.92 mill/uL (4.70-6.10); White Blood Cell (WBC) Count 8.9 10x3/uL (4.8-10.8)
[2023-07-10 04:40] LABS: Mean Corpuscular Volume 100.5 fl (78.0-98.0); Platelet Count 105 10x3/uL (130-400)
[2023-07-10 04:47] LABS: Hemoglobin A1c 6.1 % (4.0-6.0)
[2023-07-10 05:53] LABS: AST (SGOT) 30 U/L (5-34); Albumin 3.3 g/dL (3.4-4.8); Alkaline Phosphatase 97 U/L (40-110); BUN (Urea Nitrogen) 16 mg/dL (8.4-25.7); Bilirubin, Total 0.4 mg/dL (0.2-1.2); Calc. Creatinine Clearance 87 mL/min (70-130); Carbon Dioxide Less than 8 mmol/L (23-31); Cardiac Risk 2.6 (Less than 4.5); Chloride 112 mmol/L (98-107); Cholesterol 121 mg/dl (< 200 Desired); Estimated GFR 94; Globulin 2.9 g/dL (2.4-3.5); Glucose 116 mg/dL (83-110); HDL Cholesterol 46 mg/dL (>60 Neg Risk); LDL Cholesterol, Calculated 58 mg/dL; Potassium 4.4 mmol/L (3.5-5.1); Protein, Total 6.2 g/dL (5.8-8.1); Sodium 139 mmol/L (136-145); Triglycerides 84 mg/dL (Less than 150)
[2023-07-10] MEDS: Sodium Chloride 0.9% 1,000 ML IV SCH (06:20)
[2023-07-10 06:31] LABS: Actual Bicarbonate (HCO3v) 20.1 mEq/L (22-28); Base Excess -3.5 mEq/L (-2.0 to +3.0); Calcium, Ionized (venous) 1.03 mmol/L (1.16-1.32); Chloride (VBG) 108 mmol/L (98-106); Hematocrit-VBG 40 % (42.0-52.0); Hemoglobin (Hb) 13.6 g/dL (12.6-17.4); Potassium (VBG) 3.94 mmol/L (3.70-5.30); Sodium 138.5 mmol/L (133-146); pH (venous) 7.413 (7.32-7.43)
[2023-07-10 06:50] LABS: Lactic Acid 1.4 mmol/L (0.5-2.2)
[2023-07-10] MEDS: Clopidogrel Bisulfate 75 MG TAB PO SCH (09:32)
[2023-07-10] MEDS: Sertraline 100 MG TAB PO SCH (09:32)
[2023-07-10] MEDS: Aspirin 81 mg Enteric Coated Tablet PO SCH (09:32)
[2023-07-10] MEDS: Heparin 5,000 UNITS/ML VIAL SC SCH (09:32)
[2023-07-10] MEDS: Acetaminophen 325 MG TAB PO PRN ×2 (11:03→16:14)
[2023-07-10] MEDS ORDERED: Sodium Bicarb 50 MEQ/50 ML Abboject 8.4% SYRINGE IVP SCH (13:30)
[2023-07-10] MEDS ORDERED: cloNIDine 0.1 MG TAB PO PRN (13:34)
[2023-07-10] MEDS ORDERED: HYDROcodone/Acetaminophen 5/325 mg Tablet PO PRN (14:03)
[2023-07-10 14:33] LABS: Anion Gap 17 mmol/L (10-20); BUN (Urea Nitrogen) 16 mg/dL (8.4-25.7); Calc. Creatinine Clearance 39 mL/min (70-130); Calcium 9.8 mg/dL (7.8-10.44); Carbon Dioxide 16 mmol/L (23-31); Chloride 108 mmol/L (98-107); Estimated GFR 44; Glucose 84 mg/dL (83-110); Potassium 3.9 mmol/L (3.5-5.1); Sodium 137 mmol/L (136-145)
[2023-07-10] MEDS: Potassium Bicarbonate/Cit Ac 20 MEQ TAB PO SCH (15:08)
[2023-07-10] MEDS ORDERED: Sodium Bicarb 50 MEQ/50 ML VIAL IVP SCH (15:30)
[2023-07-10] MEDS ORDERED: cefTRIAXone\\ROCEPHIN 1 GM in Sodium Chloride 0.9% 100 ML IVPB SCH (16:00)
[2023-07-10] MEDS ORDERED: Lorazepam 2 MG/ML VIAL SLOW IVP SCH (16:30)
[2023-07-10] MEDS ORDERED: Lorazepam 2 MG/ML VIAL SLOW IVP PRN (17:45)
[2023-07-10] MEDS: Atorvastatin Calcium 40 MG TAB PO SCH (20:43)
[2023-07-10] MEDS: hydrALAZINE 25 MG TAB PO SCH (20:43)
[2023-07-11 05:09] LABS: #Basophils 0.1 thou/uL (0.0-0.2); #Eosinphils 0.3 thou/uL (0.0-0.7); #Monocytes 0.7 thou/uL (0.11-0.59); #Neutrophils 5.7 thou/uL (1.40-6.50); %Basophils 0.9 % (0.0-1.0); %Eosinophils 3.9 % (0.0-10.0); %Lymphocytes 16.7 % (21.0-51.0); %Monocytes 8.3 % (0.0-10.0); %Neutrophils 69.7 % (42.0-75.0); Hemoglobin 11.7 g/dL (14.0-18.0); Mean Corpuscular HGB CONC 33.4 g/dL (32.0-36.0); Mean Corpuscular Hemoglobin 30.8 pg (27.0-31.0); Mean Corpuscular Volume 92.1 fl (78.0-98.0); Mean Platelet Volume 11.5 fL (7.4-10.4); Platelet Count 181 10x3/uL (130-400); RBC Distribution Width 12.6 % (11.5-14.5); White Blood Cell (WBC) Count 8.2 10x3/uL (4.8-10.8)
[2023-07-11 05:28] LABS: Anion Gap 13 mmol/L (10-20); BUN (Urea Nitrogen) 22 mg/dL (8.4-25.7); Calc. Creatinine Clearance 38 mL/min (70-130); Calcium 8.7 mg/dL (7.8-10.44); Carbon Dioxide 21 mmol/L (23-31); Chloride 108 mmol/L (98-107); Estimated GFR 43; Glucose 93 mg/dL (83-110); Sodium 138 mmol/L (136-145)
[2023-07-11] MEDS ORDERED: Lorazepam 2 MG/ML VIAL SLOW IVP PRN (06:22)
[2023-07-11] MEDS: Aspirin 81 mg Enteric Coated Tablet PO SCH (08:14)
[2023-07-11] MEDS: hydrALAZINE 25 MG TAB PO SCH (08:14)
[2023-07-11] MEDS: Clopidogrel Bisulfate 75 MG TAB PO SCH (08:15)
[2023-07-11] MEDS: NIFEdipine XL 90 MG TAB PO SCH ×2 (08:15→08:24)
[2023-07-11] MEDS: Sertraline 100 MG TAB PO SCH (08:15)
[2023-07-11] MEDS ORDERED: Lisinopril 20 MG TAB PO SCH (09:00)
[2023-07-11 12:02] VITALS: BP 141/76; TEMP 97.7
[2023-07-11] MEDS: Acetaminophen 325 MG TAB PO PRN (12:22)
== END 2023-07-11 16:05 | disposition home or self-care (01) | DRG 689 ==
LOC: ERS 13:34 → SUATTDRO 13:34 → 2SE 15:52 → OBSVTOIN 15:52
PROVIDERS: ADMIT Internal Medicine; ATTEND Nurse Practitioner Acute Care
DX: N39.0 Urinary tract infection, site not specified (principal); G93.41 Metabolic encephalopathy; I13.0 Hypertensive heart and chronic kidney disease with heart failure and stage 1 through stage 4 chronic kidney disease, or unspecified chronic kidney disease; I50.30 Unspecified diastolic (congestive) heart failure; I69.354 Hemiplegia and hemiparesis following cerebral infarction affecting left non-dominant side; I16.1 Hypertensive emergency; N17.9 Acute kidney failure, unspecified; E87.20 Acidosis, unspecified; N18.9 Chronic kidney disease, unspecified; E78.5 Hyperlipidemia, unspecified; Z88.8 Allergy status to other drugs, medicaments and biological substances; Z79.84 Long term (current) use of oral hypoglycemic drugs; Z79.899 Other long term (current) drug therapy; Z79.02 Long term (current) use of antithrombotics/antiplatelets; Z79.82 Long term (current) use of aspirin; I69.392 Facial weakness following cerebral infarction; G89.29 Other chronic pain; M54.9 Dorsalgia, unspecified; B96.20 Unspecified Escherichia coli [E. coli] as the cause of diseases classified elsewhere; I69.322 Dysarthria following cerebral infarction; Z85.038 Personal history of other malignant neoplasm of large intestine; Z85.46 Personal history of malignant neoplasm of prostate; Z98.41 Cataract extraction status, right eye; Z98.42 Cataract extraction status, left eye; Z90.49 Acquired absence of other specified parts of digestive tract; F41.9 Anxiety disorder, unspecified; F32.A Depression, unspecified; Z87.891 Personal history of nicotine dependence
CPT/HCPCS: 36415; 36416; 51701; 70450; 70496; 70498; 70551; 71045; 72148; 80048; 80053; 80061; 81001; 82010; 82805; 83036; 83605; 83690; 83735; 83880; 84484; 85025; 85610; 85730; 87077; 87086; 87186; 93005; 95712; 95819; 95957; 96361; 96365; 96374; 96375; J0696; J1644; J2060; J2272; J2405; J3360; J3480; J3490; J7050; Q9967

== ENCOUNTER 2024-05-04 14:31 | Outpatient (CLI) | payer MEDICARE | END 2024-05-04 14:32 | disposition home or self-care (01) | LOC: SCSRAD 14:31 | PROVIDERS: ATTEND Family Medicine | DX: M25.572 Pain in left ankle and joints of left foot (principal); M79.89 Other specified soft tissue disorders ==

== ENCOUNTER 2024-05-07 21:50 | Inpatient (IN) | payer MEDICARE ==
[2024-05-08] MEDS ORDERED: Ondansetron PF 4 MG/2 ML Vial IVP PRN (00:21)
[2024-05-08] MEDS ORDERED: Ipratropium/Albuterol 3 ML NEB NEB PRN (00:21)
[2024-05-08 00:24] LABS: #Basophils 0.04 10x3/uL (0.0-0.2); %Basophils 0.5 % (0.0-1.0); %Eosinophils 1.5 % (0.0-10.0); %Neutrophils 69.5 % (42.0-75.0); Hematocrit 35.7 % (42.0-52.0); Mean Corpuscular HGB CONC 33.6 g/dL (32.0-36.0); Mean Corpuscular Hemoglobin 30.6 pg (27.0-31.0); Mean Corpuscular Volume 91.1 fL (78.0-98.0); Platelet Count 175 10x3/uL (130-400); RBC Distribution Width 13.3 % (11.5-14.5); Red Blood Cell (RBC) Count 3.92 mill/uL (4.70-6.10)
[2024-05-08 00:38] LABS: ALT (SGPT) 688 U/L (8-55); AST (SGOT) 460 U/L (5-34); Alkaline Phosphatase 226 U/L (40-110); Anion Gap 12 mmol/L (10-20); BUN (Urea Nitrogen) 17 mg/dL (8.4-25.7); Bilirubin, Total 4.9 mg/dL (0.2-1.2); Calc. Creatinine Clearance 0 mL/min (70-130); Calcium 8.1 mg/dL (7.8-10.44); Carbon Dioxide 18 mmol/L (23-31); Chloride 109 mmol/L (98-107); Estimated GFR 49; Globulin 2.5 g/dL (2.4-3.5); Glucose 111 mg/dL (83-110); Potassium 3.1 mmol/L (3.5-5.1); Protein, Total 5.5 g/dL (5.8-8.1); Sodium 136 mmol/L (136-145)
[2024-05-08 00:46] LABS: Troponin I 0.059 ng/mL (< 0.028)
[2024-05-08] MEDS ORDERED: Potassium Chloride 20 MEQ TAB ONE (00:52)
[2024-05-08 01:05] LABS: HBCM Index 0.08 S/CO (0-0.79); HBsAg Index 0.27 S/CO (0-0.99); Hep A IgM AB NONREACTIVE (NonReactive); Hep A IgM S/CO 0.15 S/CO (0-0.79); Hep B Surf Ag NONREACTIVE S/CO (NonReactive); Hep C IgG Ab NONREACTIVE S/CO (NonReactive); Hep C Index 0.08 S/CO (0-0.79); Hepatitis B Core IgM Abs NONREACTIVE S/CO (NonReactive)
[2024-05-08 02:04] VITALS: BMI 25.0
[2024-05-08] MEDS: Piperacillin/Tazobactam 3.375 GM in Sodium Chloride 0.9% 100 ML IVPB SCH (02:26)
[2024-05-08] MEDS: Sodium Chloride 0.9% 1,000 ML IV SCH (02:27)
[2024-05-08 05:51] LABS: #Basophils 0.05 10x3/uL (0.0-0.2); %Basophils 0.6 % (0.0-1.0); %Lymphocytes 19.7 % (21.0-51.0); %Monocytes 8.4 % (0.0-10.0); Hemoglobin 12.9 g/dL (14.0-18.0); Mean Corpuscular HGB CONC 33.1 g/dL (32.0-36.0); Mean Corpuscular Hemoglobin 29.6 pg (27.0-31.0); Mean Corpuscular Volume 89.4 fL (78.0-98.0); Mean Platelet Volume 11.6 fL (7.4-10.4); Platelet Count 193 10x3/uL (130-400); RBC Distribution Width 13.2 % (11.5-14.5); Red Blood Cell (RBC) Count 4.36 mill/uL (4.70-6.10)
[2024-05-08 06:09] LABS: INR-International Normal Ratio 1.1; PTT 27.5 sec (22.9-36.1); Prothrombin Time 13.9 sec (12.0-14.7)
[2024-05-08 06:22] LABS: Anion Gap 14 mmol/L (10-20); BUN (Urea Nitrogen) 17 mg/dL (8.4-25.7); Calc. Creatinine Clearance 43 mL/min (70-130); Calcium 8.6 mg/dL (7.8-10.44); Carbon Dioxide 19 mmol/L (23-31); Chloride 109 mmol/L (98-107); Estimated GFR 46; Glucose 110 mg/dL (83-110); Lipase 44 U/L (8-78); Potassium 3.5 mmol/L (3.5-5.1); Sodium 138 mmol/L (136-145)
[2024-05-08 06:33] LABS: ALT (SGPT) 723 U/L (8-55); AST (SGOT) 449 U/L (5-34); Albumin 3.4 g/dL (3.4-4.8); Alkaline Phosphatase 256 U/L (40-110); Bilirubin, Total 4.1 mg/dL (0.2-1.2); Protein, Total 6.2 g/dL (5.8-8.1)
[2024-05-08] MEDS: Acetaminophen 325 MG TAB PO SCH (07:09)
[2024-05-08] MEDS: Famotidine/PF 20 mg/2ml Vial SLOW IVP SCH (08:31)
[2024-05-08] MEDS: Lorazepam 2 MG/ML VIAL SLOW IVP PRN (11:13)
[2024-05-08] MEDS: hydrALAZINE 20 MG/ML VIAL SLOW IVP SCH ×2 (13:09→17:22)
[2024-05-08] MEDS: Morphine 2 MG/ML VIAL SLOW IVP PRN (14:52)
[2024-05-08] MEDS ORDERED: hydrALAZINE 25 MG TAB PO SCH (17:20)
[2024-05-08] MEDS: Lisinopril 20 MG TAB PO SCH (17:37)
[2024-05-08] MEDS: Metoprolol Tartrate 25 MG TAB PO SCH (17:37)
[2024-05-08] MEDS: hydrALAZINE 25 MG TAB PO SCH (21:04)
[2024-05-09] MEDS: Alogliptin 6.25 MG TAB PO SCH (08:49)
[2024-05-09] MEDS: Metoprolol Tartrate 25 MG TAB PO SCH (08:54)
[2024-05-09] MEDS: NIFEdipine XL 90 MG ER.TAB PO SCH (08:54)
[2024-05-09] MEDS: Sertraline 100 MG TAB PO SCH (08:54)
[2024-05-09] MEDS: Lisinopril 20 MG TAB PO SCH (08:54)
[2024-05-09] MEDS ORDERED: hydrALAZINE 25 MG TAB PO SCH (09:00)
[2024-05-09 09:28] LABS: #Basophils 0.06 10x3/uL (0.0-0.2); %Basophils 0.7 % (0.0-1.0); %Eosinophils 1.9 % (0.0-10.0); %Lymphocytes 17.7 % (21.0-51.0); %Monocytes 7.9 % (0.0-10.0); %Neutrophils 71.2 % (42.0-75.0); Hematocrit 38.5 % (42.0-52.0); Hemoglobin 12.6 g/dL (14.0-18.0); Mean Corpuscular HGB CONC 32.7 g/dL (32.0-36.0); Mean Corpuscular Hemoglobin 30.4 pg (27.0-31.0); Mean Corpuscular Volume 92.8 fL (78.0-98.0); Mean Platelet Volume 11.3 fL (7.4-10.4); Platelet Count 163 10x3/uL (130-400); RBC Distribution Width 13.4 % (11.5-14.5); Red Blood Cell (RBC) Count 4.15 mill/uL (4.70-6.10)
[2024-05-09 09:50] LABS: ALT (SGPT) 542 U/L (8-55); AST (SGOT) 299 U/L (5-34); Albumin 3.1 g/dL (3.4-4.8); Alkaline Phosphatase 260 U/L (40-110); Anion Gap 16 mmol/L (10-20); BUN (Urea Nitrogen) 19 mg/dL (8.4-25.7); Bilirubin, Total 2.7 mg/dL (0.2-1.2); Calc. Creatinine Clearance 38 mL/min (70-130); Calcium 8.8 mg/dL (7.8-10.44); Carbon Dioxide 14 mmol/L (23-31); Chloride 113 mmol/L (98-107); Estimated GFR 40; Globulin 3.1 g/dL (2.4-3.5); Glucose 86 mg/dL (83-110); Lipase 52 U/L (8-78); Potassium 3.3 mmol/L (3.5-5.1); Protein, Total 6.2 g/dL (5.8-8.1); Sodium 140 mmol/L (136-145)
[2024-05-09] MEDS ORDERED: Famotidine/PF 20 mg/2ml Vial ONE (10:25)
[2024-05-09] MEDS ORDERED: Iopamidol 30 ML ONE (13:24)
[2024-05-09] MEDS ORDERED: fentaNYL 50 mcg/mL 1 mL Vial ONE (13:32)
[2024-05-09] MEDS ORDERED: PROPOFOL 20 ML ONE (13:32)
[2024-05-09] MEDS ORDERED: Lidocaine 2% PF 5 ML VIAL ONE (13:32)
[2024-05-09] MEDS ORDERED: PHENYLEPHRINE-NS 100 MCG/ML 10 ML SYRINGE ONE (13:33)
[2024-05-09] MEDS ORDERED: Ondansetron PF 4 MG/2 ML Vial ONE (13:34)
[2024-05-09] MEDS ORDERED: Rocuronium Bromide 10 MG/ML (10ML VIAL) ONE (13:34)
[2024-05-09] MEDS ORDERED: Ondansetron HCl/PF 4 MG/2 ML Vial IVP PRN (14:03)
[2024-05-09] MEDS ORDERED: SUGAMMADEX SODIUM 200 MG/2 ML VIAL ONE (14:20)
[2024-05-09] MEDS: Famotidine/PF 20 mg/2ml Vial SLOW IVP SCH (20:16)
[2024-05-10 06:52] LABS: #Basophils 0.03 10x3/uL (0.0-0.2); %Basophils 0.5 % (0.0-1.0); %Eosinophils 2.8 % (0.0-10.0); %Lymphocytes 18.2 % (21.0-51.0); %Monocytes 8.8 % (0.0-10.0); Hematocrit 34.4 % (42.0-52.0); Hemoglobin 11.6 g/dL (14.0-18.0); Mean Corpuscular HGB CONC 33.7 g/dL (32.0-36.0); Mean Corpuscular Hemoglobin 30.5 pg (27.0-31.0); Mean Corpuscular Volume 90.5 fL (78.0-98.0); Mean Platelet Volume 11.4 fL (7.4-10.4); Platelet Count 143 10x3/uL (130-400); RBC Distribution Width 13.2 % (11.5-14.5)
[2024-05-10 07:18] LABS: ALT (SGPT) 398 U/L (8-55); AST (SGOT) 207 U/L (5-34); Alkaline Phosphatase 239 U/L (40-110); Anion Gap 14 mmol/L (10-20); BUN (Urea Nitrogen) 19 mg/dL (8.4-25.7); Bilirubin, Total 1.9 mg/dL (0.2-1.2); Calc. Creatinine Clearance 44 mL/min (70-130); Calcium 8.4 mg/dL (7.8-10.44); Carbon Dioxide 17 mmol/L (23-31); Chloride 111 mmol/L (98-107); Estimated GFR 47; Globulin 2.7 g/dL (2.4-3.5); Glucose 81 mg/dL (83-110); Protein, Total 5.7 g/dL (5.8-8.1); Sodium 139 mmol/L (136-145)
[2024-05-10] MEDS ORDERED: fentaNYL PF 100 MCG/2 ML SYRINGE ONE (08:04)
[2024-05-10] MEDS ORDERED: Lidocaine 2% PF 5 ML VIAL ONE (08:04)
[2024-05-10] MEDS ORDERED: Rocuronium Bromide 10 MG/ML (10ML VIAL) ONE (08:04)
[2024-05-10] MEDS ORDERED: PROPOFOL 20 ML ONE (08:04)
[2024-05-10] MEDS ORDERED: EPINEPHrine 1 MG/ML VIAL ONE (08:09)
[2024-05-10] MEDS ORDERED: Bupivacaine 0.25% HCL 30 ML VIAL ONE (08:09)
[2024-05-10] MEDS ORDERED: Piperacillin/Tazobactam 3.375 GM VIAL ONE (08:46)
[2024-05-10] MEDS ORDERED: Sodium Chloride 0.9% 100 ML ONE (08:46)
[2024-05-10] MEDS ORDERED: Indocyanine Green 25 MG/10 ML VIAL ONE (08:50)
[2024-05-10] MEDS ORDERED: SUGAMMADEX SODIUM 200 MG/2 ML VIAL ONE (09:30)
[2024-05-10] MEDS ORDERED: PHENYLEPHRINE-NS 100 MCG/ML 10 ML SYRINGE ONE (09:30)
[2024-05-10] MEDS ORDERED: ePHEDrine Sulfate 50 MG/10 ML VIAL ONE (09:59)
[2024-05-10] MEDS ORDERED: Glycopyrrolate 0.2 MG/ML 5 ML SYRINGE ONE (10:03)
[2024-05-10] MEDS ORDERED: Dexamethasone 20 MG/5 ML VIAL ONE (10:03)
[2024-05-10] MEDS: Potassium Chloride 20 MEQ in Premix 1 BAG IVPB SCH ×2 (10:05→12:08)
[2024-05-10] MEDS: Potassium Bicarbonate/Cit Ac 20 MEQ TAB PO SCH ×2 (10:05→12:08)
[2024-05-10] MEDS ORDERED: Labetalol HCl 100 MG/20 ML VIAL ONE (10:10)
[2024-05-10] MEDS ORDERED: fentaNYL 50 mcg/mL 1 mL Vial ONE (11:13)
[2024-05-11 05:39] LABS: #Basophils 0.05 10x3/uL (0.0-0.2); %Basophils 0.4 % (0.0-1.0); %Eosinophils 0.7 % (0.0-10.0); %Lymphocytes 9.3 % (21.0-51.0); %Monocytes 9.8 % (0.0-10.0); %Neutrophils 79.1 % (42.0-75.0); Hematocrit 29.9 % (42.0-52.0); Hemoglobin 9.9 g/dL (14.0-18.0); Mean Corpuscular HGB CONC 33.1 g/dL (32.0-36.0); Mean Corpuscular Hemoglobin 29.7 pg (27.0-31.0); Mean Corpuscular Volume 89.8 fL (78.0-98.0); Mean Platelet Volume 12.2 fL (7.4-10.4); Platelet Count 166 10x3/uL (130-400); RBC Distribution Width 13.8 % (11.5-14.5); Red Blood Cell (RBC) Count 3.33 mill/uL (4.70-6.10)
[2024-05-11 06:00] LABS: ALT (SGPT) 309 U/L (8-55); AST (SGOT) 159 U/L (5-34); Albumin 2.6 g/dL (3.4-4.8); Alkaline Phosphatase 197 U/L (40-110); Anion Gap 18 mmol/L (10-20); BUN (Urea Nitrogen) 30 mg/dL (8.4-25.7); Bilirubin, Total 1.2 mg/dL (0.2-1.2); Calc. Creatinine Clearance 29 mL/min (70-130); Calcium 7.8 mg/dL (7.8-10.44); Carbon Dioxide 13 mmol/L (23-31); Chloride 111 mmol/L (98-107); Estimated GFR 28; Globulin 2.5 g/dL (2.4-3.5); Glucose 108 mg/dL (83-110); Potassium 3.7 mmol/L (3.5-5.1); Protein, Total 5.1 g/dL (5.8-8.1); Sodium 138 mmol/L (136-145)
[2024-05-11] MEDS: Sodium Bicarbonate 75 MEQ in Dextrose 5 %-0.45 % NaCl 1,000 ML IV SCH (09:49)
[2024-05-11] MEDS: Insulin Regular, Human 100 UNIT/ML 10 ML VIAL SC PRN (14:18)
[2024-05-11] MEDS: traZODone HCl 50 MG TAB PO PRN (23:03)
[2024-05-12 06:29] LABS: Anion Gap 13 mmol/L (10-20); BUN (Urea Nitrogen) 21 mg/dL (8.4-25.7); Calc. Creatinine Clearance 46 mL/min (70-130); Carbon Dioxide 17 mmol/L (23-31); Chloride 110 mmol/L (98-107); Estimated GFR 50; Glucose 112 mg/dL (83-110); Potassium 2.8 mmol/L (3.5-5.1); Sodium 137 mmol/L (136-145)
[2024-05-12] MEDS: Potassium Chloride 20 MEQ TAB PO SCH (08:20)
[2024-05-12] MEDS: Loperamide HCl 2 MG CAP PO PRN (08:49)
[2024-05-12 13:14] VITALS: BP 147/76; TEMP 97.8
[2024-05-12] MEDS ORDERED: Potassium Chloride 20 MEQ TAB PO SCH (16:00)
== END 2024-05-12 14:40 | disposition home or self-care (01) | DRG 418 ==
LOC: ERS 21:50 → SURG A 05-08 00:26
PROVIDERS: ADMIT Student in an Organized Health Care Education/Training Program; ATTEND Student in an Organized Health Care Education/Training Program
PROC: 0F798ZZ Dilation of Common Bile Duct, Via Natural or Artificial Opening Endoscopic (ICD-10-PCS; 2024-05-09)
PROC: BF131ZZ Fluoroscopy of Gallbladder and Bile Ducts using Low Osmolar Contrast (ICD-10-PCS; 2024-05-09)
PROC: 0FT44ZZ Resection of Gallbladder, Percutaneous Endoscopic Approach (ICD-10-PCS; principal; 2024-05-10)
DX: K80.00 Calculus of gallbladder with acute cholecystitis without obstruction (principal); N17.9 Acute kidney failure, unspecified; E11.9 Type 2 diabetes mellitus without complications; I10 Essential (primary) hypertension; E87.6 Hypokalemia; E78.5 Hyperlipidemia, unspecified; Z86.73 Personal history of transient ischemic attack (TIA), and cerebral infarction without residual deficits; Z90.79 Acquired absence of other genital organ(s); Z90.49 Acquired absence of other specified parts of digestive tract; Z98.49 Cataract extraction status, unspecified eye; Z87.891 Personal history of nicotine dependence; Z98.890 Other specified postprocedural states
CPT/HCPCS: 36415; 36416; 74181; 74330; 76377; 76705; 80048; 80053; 80074; 83605; 83690; 85025; 85610; 85730; 88304; 96360; 96361; C1713; J0171; J0360; J0665; J1100; J1815; J2001; J2060; J2272; J2405; J2543; J2704; J3010; J3480; J3490; J7042; J7050; Q9967; S0028